=== PATIENT | female | born 1975 | race Caucasian/White ===

== ENCOUNTER 2016-07-27 09:03 | Outpatient (CLI) | payer BC ==
--- NOTE | 2016-07-27 09:36 | DIAGNOSTIC IMAGING REPORT ---
PROCEDURE: XR CHEST 2 VIEW INDICATION: PRE OP TECHNIQUE: PA and lateral views. COMPARISON: None. FINDINGS: Lungs are clear. Heart and mediastinum are normal. Thorax is normal. IMPRESSION: 1. Negative chest.
[2016-07-30] MEDS ORDERED: PERCOCET1 TA2 PO (12:22)
[2016-07-30] MEDS ORDERED: IRON325 MG PO (12:23)
[2016-07-30] MEDS ORDERED: FLUOXETINE HCL20 MG PO (12:23)
== END 2016-07-27 23:00 ==
LOC: LAB SRH 09:03
DX: Z01.818 Encounter for other preprocedural examination (principal); Z01.812 Encounter for preprocedural laboratory examination; M23.362 Other meniscus derangements, other lateral meniscus, left knee
CPT/HCPCS: 90004; 90100; 90148; 90469; 95059

== ENCOUNTER 2016-07-28 16:18 | Outpatient (CLI) | payer BC ==
[2016-07-30] MEDS ORDERED: PERCOCET1 TA2 PO (12:22)
[2016-07-30] MEDS ORDERED: IRON325 MG PO (12:23)
[2016-07-30] MEDS ORDERED: FLUOXETINE HCL20 MG PO (12:23)
== END 2016-07-28 23:00 ==
LOC: RT SRH 16:18
DX: Z01.810 Encounter for preprocedural cardiovascular examination (principal); M23.362 Other meniscus derangements, other lateral meniscus, left knee

== ENCOUNTER 2016-08-04 07:51 | Day surgery (SDC) | payer BC ==
--- NOTE | 2016-07-27 09:38 | HISTORY AND PHYSICAL ---
ADMITTED: 08/04/2016 CHIEF COMPLAINT: 1. Left knee pain HISTORY OF PRESENT ILLNESS: The patient has had problems with both knees for a number of years. She has had multiple injections to the knees and it has now come to the point where the left knee injection just really has not helped relieve the pain. Then she had a fall, too, about a month or month and a half ago when she injured the knee and it just made it worse. She has had physical therapy, which has not been helpful. Again, the latest injection was not helpful. She has had some clicking and popping in the knee, but mainly pain in the anterolateral aspect of the knee. She had an MRI scan which showed her to have an almost complete discoid lateral meniscus, and there is a tear of that meniscus. She also has some narrowing or thinning of the articular cartilage in the patellofemoral joint, particularly on the lateral side. The patient is being admitted for arthroscopy with debridement of the knee, partial lateral meniscectomy, and probable lateral release. MEDICAL/SURGICAL HISTORY: Past history is positive in that she has had a previous appendectomy. She has also had a sterilization procedure and then later a total hysterectomy and removal of one of her ovaries (I am not sure which was removed) . She denies other serious medical illness and specifically says she has not had a [place] or CVA. She does not have hypertension or diabetes, AIDS, cancer, tumor, tuberculosis, peptic ulcer disease, hepatitis, and says that she has been quite healthy. MEDICATIONS: 1. Percocet 7.5/325, which she takes on a p.r.n. basis for pain. 2. Phentermine 37.5 mg that she takes daily before breakfast. 3. Tramadol 50 mg, she takes on a p.r.n. basis for pain. 4. Meloxicam 7.5 mg daily. 5. Fluoxetine 20 mg daily. ALLERGIES: 1. SULFA ANTIBIOTICS. SOCIAL HISTORY: She does report that she has had problems with depression. She is a smoker; says she only smokes occasionally and has been trying to quit. I counseled her today on smoking cessation and encouraged her with the thought that the surgery would be safer and the risks of DVT, of infection, of problems with stiffness and continued pain and the problem with healing in the knee, and anesthesia complications, are all more likely if she smokes and that if she stopped smoking it would be helpful for her , and she understands and says she will stop today. FAMILY HISTORY: No family history of bleeding or anesthesia problems. Family history otherwise is noncontributory. REVIEW OF SYSTEMS: PHYSICAL EXAMINATION: HEENT: Head normocephalic and atraumatic. Eyes are clear. Face symmetrical. NECK: Without jugular venous distention. CHEST: Symmetrical. HEART: Regular rate and rhythm without murmur. LUNGS: Clear to auscultation. ABDOMEN: Moderately obese. EXTREMITIES: I will refer you to my clinic notes of 07/23/2016. IMPRESSION: 1. Lateral meniscal tear, discoid lateral meniscus 2. Patellofemoral arthritis PLAN: The plan will be for surgery of left knee, left knee arthroscopy with probable lateral release, debridement, chondroplasty and partial lateral meniscectomy.
[~2016-08-04] VITALS: Ht 162.6 cm; Wt 81.0 kg
[~2016-08-04 07:51] MED LIST: FLUOXETINE HCL20 MG PO; IRON325 MG PO; PERCOCET1 TA2 PO
--- NOTE | 2016-08-04 10:22 | Postoperative Progress Note ---
Postop Progress Note Preoperate Diagnosis: Possible rotator cuff tear, SLAP tear, impingement, AC arthritis Postoperative Diagnosis: SLAP tear, AC arthritis, impingement right shoulder Surgeon: Dat Brewster MD Anesthesia: General ETT Findings: SLAP tear and mild GH arthritis, severe AC arthritis, impingement right shoulder. Procedure: Right shoulder arthroscopy and debridement with repair of SLAP tear, acromioplasty, and distal clavicle resection. Complications? No Condition: Stable EBL: 10cc Blood Administered: 0 Specimen(s) removed? No Grafts or Implants? Yes Graft/Implant type: 2 suture anchors. . (See nursing notes for details of grafts/implants)
--- NOTE | 2016-08-04 12:24 | Postoperative Progress Note ---
Postop Progress Note Preoperate Diagnosis: Discoid lateral meniscus with tear, patellar maltracking and patella f Postoperative Diagnosis: [place] + [place] [facility] [place]: Dat Brewster MD Anesthesia: General ETT Findings: Chondromalacia with cartilage flaps and tearing MFC. Discoid lateral meniscus with small tear, patellar maltracking with mild chodral injury. Procedure: Chondroplasty, partial lateral meniscectomy, lateral release left knee. Complications? No Condition: Stable EBL: 2cc Blood Administered: 0 Specimen(s) removed? No Grafts or Implants? No . (See nursing notes for details of grafts/implants)
--- NOTE | 2016-08-04 12:24 | Postoperative Progress Note ---
Postop Progress Note Preoperate Diagnosis: Discoid lateral meniscus with tear, patellar maltracking and patella f Postoperative Diagnosis: Same + chondromalacia [facility] [place] Surgeon: Dat Brewster MD Anesthesia: General ETT Findings: Chondromalacia with cartilage flaps and tearing MFC. Discoid lateral meniscus with small tear, patellar maltracking with mild chodral injury. Procedure: Chondroplasty, partial lateral meniscectomy, lateral release left knee. Complications? No Condition: Stable EBL: 2cc Blood Administered: 0 Specimen(s) removed? No Grafts or Implants? No . (See nursing notes for details of grafts/implants)
[2016-08-04] MEDS ORDERED: PERCOCET1 TA1 PO (12:36)
--- NOTE | 2016-08-04 12:37 | Provider's Discharge Care Plan ---
Problem, Goal, Plan Problem List 1. Lateral meniscal tear 2. Chondromalacia of knee
--- NOTE | 2016-08-04 12:37 | Provider's Discharge Care Plan ---
Problem, Goal, Plan Problem List 1. Lateral meniscal tear 2. Chondromalacia of knee
--- NOTE | 2016-08-04 13:25 | OPERATIVE REPORT ---
DATE OF SURGERY: 08/04/2016 SURGEON: FISH JACKSON MD PREOPERATIVE DIAGNOSIS: 1. Discoid lateral meniscal tear with lateral meniscal tear, patellar maltracking and patellofemoral arthritis POSTOPERATIVE DIAGNOSES: 1. Chondromalacia with flap tears of the articular cartilage of the medial femoral condyle, discoid lateral meniscus with a small tear and some minor chondromalacia of the superior pole of the patella and patellar maltracking with lateral tracking of the patella PROCEDURE PERFORMED: Operation proposed was a left knee arthroscopy with a probable lateral release and partial lateral meniscectomy and chondroplasty as needed. The operation performed was a left knee arthroscopy, chondroplasty of the medial femoral condyle and the superior pole of the patella and partial lateral meniscectomy and lateral release. ESTIMATED BLOOD LOSS: Maybe 1 or 2 mL. COMPLICATIONS: None. PATHOLOGY SPECIMEN: None. SURGICAL TECHNIQUE: The patient was taken to the operating room, she was given a general anesthetic. Tourniquet applied to the left leg, it was placed as a precaution, but was not used during the course of the procedure. She was placed in a leg sutton. The leg was prepped and draped in the usual sterile fashion. We started with 2 small incisions at the joint line, one medial and one lateral to the patellar tendon and the scope was inserted through the lateral portal and visualization was begun looking into the medial side and you could right away see that her meniscus was in good condition and the articular cartilage on the tibial side was in good condition, but there was some flaps and tearing and damage to the articular cartilage on the lateral part of the medial femoral condyle, right in the weightbearing area and so a shaver was inserted through the medial portal and we trimmed and smoothed that leaving a nice smooth surface, but unfortunately with loss of the articular cartilage almost down to bone. The patient then had inspection of the central notch. The patient had some synovitis there, but otherwise looked good and the anterior cruciate ligament was in perfect condition without damage or disruption. We went to the lateral side and here looked at the lateral meniscus and she did indeed have a near complete discoid lateral meniscus with a small tear on the lateral aspect of the meniscus centrally. We switched the scope over to the lateral portal and looked over to the medial side and put our instruments in through the lateral portal and trimmed away the margin of the meniscus, leaving a more normal contour and a larger central opening so it truly was C-shaped or donut shaped if you will, and removing the torn portion of the meniscus as well, and then we probed around the periphery. There was no peripheral detachment that was found. We then went up to the patella. The patellar articular cartilage was in better condition than I anticipated. There was an area in the superior aspect that had some damage and this was smoothed make another portal at the superolateral corner of the patella and inserting the shaver through that and trimming smoothing the articular cartilage as best as possible. Primarily though, at the patellofemoral joint, she had lateral tracking of the patella and it was only when she got down to almost 90 degrees of flexion that the patella would actually seat down in the femoral sulcus as it should and so I took a 90 degree electrocautery tip and did a lateral release and with this then, you could see on the last 2 pictures the tracking is much better. The patella tended to sit in the femoral sulcus much better and we then thoroughly washed out the knee with sterile saline, evacuated it, closed the incisions with subcuticular 3-0 Polysorb suture, injected into the knee with a combination of 0.25% Marcaine with epinephrine and 80 mg of Depo -Medrol and dressed with Xeroform, ABD pads. She was wrapped in a sterile Webril and a loosely applied Jag bandage to secure it in place and she was then awakened and taken to the recovery room. She was in stable condition.
[2016-08-04 14:27] VITALS: BP 122/61
== END 2016-08-04 14:49 | disposition home or self-care (01) ==
LOC: OR SRH 07:51 → SCU SRH 07:52 → OR SRH 10:00
PROVIDERS: Orthopaedic Surgery
PROC: 0SBD4ZZ Excision of Left Knee Joint, Percutaneous Endoscopic Approach (ICD-10-PCS; principal; 2016-08-04 10:00)
PROC: 0MNP4ZZ Release Left Knee Bursa and Ligament, Percutaneous Endoscopic Approach (ICD-10-PCS; principal; 2016-08-04 10:00)
DX: M23.362 Other meniscus derangements, other lateral meniscus, left knee (principal); M25.862 Other specified joint disorders, left knee; M22.42 Chondromalacia patellae, left knee; Z72.0 Tobacco use
CPT/HCPCS: 29240; 50002; 60001; 70002; 80118; 80143; 80144; 80575; 83420; 83440